=== PATIENT | male | born 1960 | race Caucasian/White ===

== ENCOUNTER 2018-01-01 16:32 | Outpatient (CLI) | payer OTHER ==
[2018-01-01 16:56] LABS: #Basophils 0.1 thou/uL (0.0-0.2); #Eosinphils 0.1 thou/uL (0.0-0.7); #Lymphocytes 2.6 thou/uL (1.20-3.40); #Monocytes 0.8 thou/uL (0.11-0.59); #Neutrophils 5.7 thou/uL (1.40-6.50); %Basophils 0.6 % (0.0-1.0); %Eosinophils 0.8 % (0.0-10.0); %Monocytes 8.5 % (0.0-10.0); %Neutrophils 62.1 % (42.0-75.0); Hemoglobin 16.9 g/dL (14.0-18.0); Mean Corpuscular HGB CONC 35.2 g/dL (32.0-36.0); Mean Corpuscular Hemoglobin 30.4 pg (27.0-31.0); Mean Corpuscular Volume 86.3 fl (80.0-94.0); Mean Platelet Volume 6.7 fL (7.4-10.4); Platelet Count 229 thou/uL (130-400); RBC Distribution Width 11.9 % (11.5-14.5); Red Blood Cell (RBC) Count 5.56 mill/uL (4.70-6.10); White Blood Cell (WBC) Count 9.2 thou/uL (4.8-10.8)
[2018-01-01 17:18] LABS: Anion Gap 12 mmol/L (10-20); BUN (Urea Nitrogen) 17 mg/dL (8.4-25.7); Calc. Creatinine Clearance 0 mL/min (70-130); Calcium 10.2 mg/dL (7.8-10.44); Carbon Dioxide 29 mmol/L (22-29); Chloride 103 mmol/L (98-107); Estimated GFR-MDRD 69; Glucose 84 mg/dL (70-105); Potassium 5.1 mmol/L (3.5-5.1); Sodium 139 mmol/L (136-145)
== END 2018-01-01 16:33 | disposition home or self-care (01) ==
LOC: LABBT 16:32
PROVIDERS: ATTEND Surgery
DX: Z01.812 Encounter for preprocedural laboratory examination (principal); K40.90 Unilateral inguinal hernia, without obstruction or gangrene, not specified as recurrent
CPT/HCPCS: 80048; 85025

== ENCOUNTER 2018-01-09 11:30 | Day surgery (SDC) | payer OTHER ==
[2018-01-01 17:04] VITALS: BMI 24.0
[~2018-01-09 11:30] MED LIST: Dexamethasone 20 MG/5 ML VIAL ONE; Glycopyrrolate 0.2 MG/ML 5 ML SYRINGE ONE; Ketorolac Tromethamine 30 MG/ML VIAL ONE; Lidocaine 1% PF 5 ML VIAL ONE; Metoclopramide HCl 10 MG/2 ML VIAL ONE; Ondansetron HCl/PF 4 MG/2 ML Vial ONE; PROPOFOL 200 MG/20 ML VIAL ONE; diphenhydrAMINE 50 MG/ML VIAL ONE; ePHEDrine/0.9% NaCl/PF SYRINGE 50 mg/10 ml ONE
[2018-01-09] MEDS ORDERED: Bupivacaine/Epinephrine 0.25% 30 ML VIAL ONE (12:53)
[2018-01-09] MEDS ORDERED: CEFAZOLIN/Water 2 GM/20 ML SYRINGE ONE (12:58)
[2018-01-09] MEDS ORDERED: Midazolam HCl 2 mg/2 ml Vial ONE (12:59)
[2018-01-09] MEDS ORDERED: Fentanyl 100 MCG/2 ML VIAL ONE (13:04)
[2018-01-09] MEDS ORDERED: Morphine 4 MG/ML VIAL ONE (15:30)
[2018-01-09] MEDS ORDERED: Promethazine HCl 25 MG/ML VIAL ONE (15:30)
[2018-01-09] MEDS ORDERED: Promethazine 25 MG TAB ONE (15:30)
--- NOTE | 2018-01-10 15:15 | OP ---
DATE OF PROCEDURE: 01/09/2018. PREOPERATIVE DIAGNOSIS: Left inguinal hernia. POSTOPERATIVE DIAGNOSIS: Bilateral inguinal hernia. PROCEDURE PERFORMED: Laparoscopic da Kamron robot bilateral inguinal hernia repair with mesh, Bard 3D Max large. SURGEON: Dr. Ribera. ANESTHESIA: General. ESTIMATED BLOOD LOSS: Minimal. COMPLICATIONS: None. FINDINGS: Bilateral inguinal hernia. TECHNIQUE: The patient was taken to the operating room and placed supine on the table. After genera l anesthetic was obtained, a Jensen was placed. The abdomen was shaved, prepped, and draped in a ster ile fashion. Curved incision made above the umbilicus. Cautery was used to dissect down to and scor e the fascia. Abdominal cavity entered bluntly using a Joanne clamp. An 11 mm balloon trocar is plac ed. High-flow pneumoperitoneum was obtained. Left and right abdominal [address] d under direct visualization. The patient placed in Trendelenburg position. All ports are docked to the robot. Surgeon goes to the console. The peritoneum was taken down in the right and left lower quadrant into the preperitoneal spaces. There are bilateral hernias present. The preperitoneal spac es were bluntly dissected to pubic tubercle medially, anterior superiorly iliac crest laterally. The iliopectineal line is fully exposed. The bilateral direct hernias were dissected out of the defects . The bilateral indirect hernias were dissected off of the cord structures high up onto the peritone um. The bilateral large mesh was brought in and placed in the abdominal cavity and the end-labeled m edial aspect of the mesh is placed over pubic tubercle medially. The mesh laid out laterally to full y cover the indirect, direct and femoral spaces. A 2-0 Vicryl was used to sew the mesh to the pubic tubercle, medially to the posterior fascia lateral to the inferior epigastric vessels. The peritoneu m is reapproximated using 3-0 Stratafix. All port sites infiltrated using local anesthetic. All por ts are removed under camera visualization. Pneumoperitoneum was led down. PDS used to close the fas cial defect above the umbilicus. All incisions were irrigated and closed using 4-0 Monocryl and Derm abond. The patient is en route to recovery in stable condition. All instrument counts, needle count s, lap counts were correct.
== END 2018-01-09 17:12 | disposition home or self-care (01) ==
LOC: SDC 11:30
PROVIDERS: ATTEND Surgery
PROC: 0YUA4JZ Supplement Bilateral Inguinal Region with Synthetic Substitute, Percutaneous Endoscopic Approach (ICD-10-PCS; principal; 2018-01-09)
PROC: 8E0W4CZ Robotic Assisted Procedure of Trunk Region, Percutaneous Endoscopic Approach (ICD-10-PCS; principal; 2018-01-09)
DX: K40.20 Bilateral inguinal hernia, without obstruction or gangrene, not specified as recurrent (principal); E78.5 Hyperlipidemia, unspecified; Z79.899 Other long term (current) drug therapy
CPT/HCPCS: 96374; 96375; C1781; J1100; J1200; J1885; J2001; J2250; J2270; J2405; J2550; J2704; J2765; J3010

== ENCOUNTER 2022-07-11 05:50 | Day surgery (SDC) | payer BC ==
[2022-07-10 13:18] VITALS: BMI 24.9
[2022-07-11] MEDS ORDERED: Midazolam HCl 2 mg/2 ml Vial ONE (07:18)
[2022-07-11] MEDS ORDERED: PROPOFOL 200 MG/20 ML VIAL ONE (08:31)
[2022-07-11] MEDS ORDERED: EPINEPHrine 1 MG/10 ML Abboject SYRINGE ONE (08:31)
== END 2022-07-11 10:23 | disposition home or self-care (01) ==
LOC: SDC 05:50
PROVIDERS: ATTEND Internal Medicine Gastroenterology
DX: Z12.11 Encounter for screening for malignant neoplasm of colon (principal); D12.2 Benign neoplasm of ascending colon; D12.3 Benign neoplasm of transverse colon; D12.4 Benign neoplasm of descending colon; K57.30 Diverticulosis of large intestine without perforation or abscess without bleeding; K64.9 Unspecified hemorrhoids; E78.5 Hyperlipidemia, unspecified; Z79.899 Other long term (current) drug therapy
CPT/HCPCS: 88305; J2250